=== PATIENT | female | born 1960 | race Caucasian/White ===

== ENCOUNTER 2024-12-18 13:00 | Outpatient (RCR) | payer BC, SELFPAY ==
--- NOTE | 2024-11-17 15:01 | MHC.OT.OLE ---
[address] [phone] F: [phone] Occupational Therapy Lymphedema Evaluation Patient Name: Mary Springer Diagnosis: (B)LE lymphedema Date of Onset: Attending Provider: Magdy Brady Prescribed Treatment: Follow Up Appointment: History of Current Condition: Patient is 64 y/o female, per patient report has a PMHx of DM II, venous stasis who presents today with (B)LE edema and (B)wounds. Patient reports she has had open wounds and edema for years. She reports she lives alone but has a caregiver who lives with her. She stated her PLOF as (I)ADLs/IADLs. Her current level of function is max (A)LB self care tasks and utilized a w/c for functional mobility. Significant Medical History: Precautions/Contraindications: Patient Goals: Hand Dominance: Observations: Outcome Measures: Prior Level of Function and Occupation Living Situation: alone Family and/or Social Report: Self-Intermediate Support: (I)ADLs/IADLs Employment Status: Leisure Activities/Hobbies: Current Level of Function and Occupation Self-Care and Home Care: max (A)ADLs/IADLs Employment Status: Leisure Activites/Hobbies: Driving: Sleeping: Vision: Balance: Pain Assessment Pain Score: Pain Scale Used: Pain Location and Description: Aggravating Factors: Alleviating Factors: Skin and Soft Tissue Assessment Skin and Soft Tissue: Comments: open wounds (B)'ly: (R)LE in crease of thigh lobule, (L)LE anterior of leg Nerve assessment Ulnar Nerve: Median Nerve: Radial Nerve: Comments: Sensory Assessment Temperature: Light Touch: Proprioception: Vibration: Comments: Edema Assessment Upper Extremity: Lower Extremity: Comments: Dexterity Assessment Dexterity: Comments: Special Tests Comments: AROM (PROM) Strength Lower Extremity Hip Flexion: Knee Flexion: Knee Extension: Ankle Dorsiflexion: Ankle Plantarflexion: Ankle Eversion: Ankle Inversion: Comments: Cervical Flexion: Extension: Lateral Flexion: Rotation: Comments: Shoulder Flexion: Extension: Abduction: Internal Rotation: External Rotation: Comments: Flexion: Extension: Abduction: Internal Rotation: External Rotation: Comments: Elbow Flexion: Extension: Forearm Pronation: Forearm Supination: Comments: Flexion: Extension: Forearm Pronation: Forearm Supination: Comments: Wrist Flexion: Extension: Ulnar Deviation: Radial Deviation: Comments: Flexion: Extension: Ulnar Deviation: Radial Deviation: Comments: Thumb Thumb CMC Flexion: Thumb MCP Flexion: Thumb IP Flexion: Radial Abduction: Palmar Abduction: Opposition: Comments: Digits Index MCP: PIP: DIP: Long MCP: PIP: DIP: Ring MCP: PIP: DIP: Small MCP: PIP: DIP: Comments: Gross Grasp: Lateral Pinch: Two-Point Pinch: Three-Jaw Kavon: Comments: Patient Education Primary Language: Cut Out Stitcher Required: No Current Knowledge: Understands information with skills for self-management Teaching Method: Education Needs Identified on Evaluation: ADL's Disease Information Equipment Use Exercise Pain Safety How did patient/family demonstrate learning? Patient demonstrates Patient verbalizes Barriers to Learning: None Readiness for Learning: Accepting Who was educated? Patient Comments: Plan of Care Assessment: Based on initial OT eval patient presents with stage III (B)LE lymphedema with open wounds (B'ly) with pitting. LLIS= 67% indicating impact on patient's performance of ADLs. Due to the impaired skin integrity, increased risk for infection, impaired joint integrity, pain and impaired performance during self care tasks it is recommended that patient receive complete decongestive therapy in order to promote wound healing and increase patient's quality of life. Thank you for referral. STG Duration: 2 weeks Short Term Goals: Patient will decrease (R)LE lymph volume by 10% Patient will decrease (L)LE lymph volume by 10% LTG Duration: 4 weeks Weights And Measures Sealer Goals: Patient will don/doff compression garments with min (A) Patient will be (I)with HEP Patient will be (I) with hygiene/ skin care routine to decrease risk of infection Frequency and Duration: The patient will be seen 3-4x a week for 5 weeks Treatment Plan: Treatment Plan Comments: CDT/ OT Lymphedema Treatment Plan: Compression Bandaging Exercise: Stretching, strengthening, manual therapy Family/Caregiver Training Manual Lymphatic Drainage Referral for compression garment and instructions for donning/doffing Self Care Training: bandaging, skin care, self massage Skin Care Education Wound Care Needs Lymphedema Treatment Plan Comments: Electronically Signed By: BOUBACAR Mayen/Rohan CLT Reviewed/agree with student documentation: Therapist: Please sign and return to therapist, thank you for your referral.
== END 2025-04-06 12:25 | disposition home or self-care (01) ==
LOC: HO.OT 13:00
PROVIDERS: PCP Family Medicine; Visit Provider Physician Assistant
DX: I89.0 Lymphedema, not elsewhere classified (principal); L89.893 Pressure ulcer of other site, stage 3; L97.822 Non-pressure chronic ulcer of other part of left lower leg with fat layer exposed
CPT/HCPCS: 97140; 97166; 97535